=== PATIENT | female | born 1980 | race Caucasian/White ===

== ENCOUNTER 2016-09-23 12:43 | Emergency (ER) | payer MEDICAID ==
[~2016-09-23] VITALS: Ht 154.9 cm; Wt 59.0 kg
[~2016-09-23 12:43] MED LIST: ACET325T33 PO; OMEP20CA16 PO; RANI150T9 PO
[2016-09-23 12:53] VITALS: Ht 154.9 cm; Wt 59.0 kg
[2016-09-23] MEDS ORDERED: IBUPROFEN 600 MG TAB PO ONE (15:00)
--- NOTE | 2016-09-23 15:25 | RADRPT ---
PROCEDURE: XR Left Hand CLINICAL INDICATION: Pain, swelling TECHNIQUE: AP, oblique, and lateral radiographs were submitted. COMPARISON: None FINDINGS: Osseous structures: appear well mineralized and intact with no fracture or destructive process iden tified. Joint spaces: are well maintained, with no significant spurring, erosion or joint effusion evident. Soft tissues: appear unremarkable. IMPRESSION: Unremarkable left hand. Physician Anila Date Time Electronically viewed and signed by Physician Anila on 09/23/2016 15:25 /
--- NOTE | 2016-09-23 15:26 | RADRPT ---
PROCEDURE: XR Left Wrist with Navicular View CLINICAL INDICATION: Pain and swelling TECHNIQUE: AP, lateral, and oblique views as well as a carpal navicular view were submitted. COMPARISON: None FINDINGS: Osseous structures: appear well mineralized and intact with no fracture or destructive process iden tified. Joint spaces: are well maintained with no significant erosions or spurring identified. Soft tissues: appear unremarkable. IMPRESSION: Unremarkable left wrist with navicular view. Physician Anila Date Time Electronically viewed and signed by Physician Anila on 09/23/2016 15:26 RH/
[2016-09-23] MEDS ORDERED: IBUP-1542 PO (15:30)
[2016-09-23 15:51] VITALS: TEMP 98.1
--- NOTE | 2016-09-24 17:00 | ERD ---
ER Documentation Chief Complaint Date/Time DATE: 09/24/16 TIME: 16:55 Chief Complaint Pt c/o L wrist pain and swelling X 4 days. Denies fever . no injury. HPI This is a 36-year-old female presents emergency department for left wrist pain and swelling 4 days. No injury or trauma to the area. Patient denies numbness or tingling. Denies loss of sensation. No limited mobility. Patient has pain with hyperextension of left wrist. Patient has been taking Advil at home with last dose 7 hours ago. Patient is right-handed. No fevers. No rashes or skin changes. ROS All systems reviewed and are negative except as per history of present illness. Medications Home Meds Active Scripts Ibuprofen* (Motrin*) 600 Mg Tab, 600 MG PO Q6, #15 TAB Prov:JORJE PERRIN NP 09/23/16 Ranitidine Hcl* (Zantac*) 150 Mg Tablet, 150 MG PO BID Y for EPIGASTRIC PAIN, # 30 TAB Prov:JOHN HART NP 05/13/16 Omeprazole* (Omeprazole*) 20 Mg Capsule.dr, 20 MG PO DAILY for 14 Days, #14 Prov:JOHN HART NP 05/13/16 Acetaminophen* (Tylenol*) 325 Mg Tablet, 2 TAB PO Q6 Y for PAIN AND OR ELEVATED TEMP, #20 TAB Prov:NO DELA CRUZ 02/26/15 Allergies Allergies: Coded Allergies: No Known Allergy (Unverified , 09/23/16) PMhx/Soc Medical and Surgical Hx: pt denies Medical Hx, pt denies Surgical Hx History of Surgery: No Anesthesia Reaction: No Hx Neurological Disorder: No Hx Respiratory Disorders: No Hx Cardiac Disorders: No Hx Psychiatric Problems: No Hx Miscellaneous Medical Probl: No Hx Alcohol Use: No Hx Substance Use: No Hx Tobacco Use: No Smoking Status: Never smoker Physical Exam Vitals Vital Signs Date Time Temp Pulse Resp B/P Pulse Ox O2 Delivery O2 Flow Rate FiO2 09/23/16 15:51 98.1 09/23/16 12:53 97.9 69 18 129/80 99 Physical Exam Const: No acute distress, alert Head: Atraumatic Eyes: Normal Conjunctiva ENT: Normal External Ears, Nose and Mouth. Neck: Full range of motion..~ No meningismus. Resp: Clear to auscultation bilaterally Cardio: Regular rate and rhythm, no murmurs Abd: Soft, non tender, non distended. Normal bowel sounds Skin: No petechiae or rashes Back: No midline or flank tenderness Ext: No cyanosis, or edema. Full mobility to bilateral wrists. No loss of sensation. Neur: Awake and alert Psych: Normal Mood and Affect Results 24 hrs Current Medications Medications (Trade) Dose Ordered Sig/Ugo Route PRN Reason Start Time Stop Time Status Last Admin Dose Admin Ibuprofen (Motrin) 600 mg ONCE ONCE PO 09/23/16 15:00 09/23/16 15:01 DC 09/23/16 15:00 Procedures/MDM ED COURSE: The patient was stable throughout ED course. I kept the patient and/or family informed of laboratory and diagnostic imaging results throughout the ED course. Imaging Patient: RIDDHI BILL : 1980 Age: 36 Sex: F MR #: [id number] DOS: 09/23/16 1453 Ordering MD: JORJE PERRIN NP Location: [facility] Room/Bed: PROCEDURE: XR Left Hand CLINICAL INDICATION: Pain, swelling TECHNIQUE: AP, oblique, and lateral radiographs were submitted. COMPARISON: None FINDINGS: Osseous structures: appear well mineralized and intact with no fracture or destructive process identified. Joint spaces: are well maintained, with no significant spurring, erosion or joint effusion evident. Soft tissues: appear unremarkable. IMPRESSION: Unremarkable left hand. Patient: RIDDHI BILL : 1980 Age: 36 Sex: F MR #: [id number] DOS: 09/23/16 1453 Ordering MD: JORJE PERRIN NP Location: [facility] Room/Bed: PROCEDURE: XR Left Wrist with Navicular View CLINICAL INDICATION: Pain and swelling TECHNIQUE: AP, lateral, and oblique views as well as a carpal navicular view were submitted. COMPARISON: None FINDINGS: Osseous structures: appear well mineralized and intact with no fracture or destructive process identified. Joint spaces: are well maintained with no significant erosions or spurring identified. Soft tissues: appear unremarkable. IMPRESSION: Unremarkable left wrist with navicular view. MDM: 36 year old female presents emergency department for left wrist pain and swelling 4 days. Denies injury or trauma. Has full sensation to wrist and hand. No loss of sensation. Physical exam is overall unremarkable. No fevers or chills. No skin changes. X-ray left hand reviewed by radiologist as unremarkable. X-ray left wrist reviewed by radiologist is unremarkable. Remains hemodynamically stable. Low suspicion for acute dislocation, fracture, compartment syndrome or cellulitis. Diagnosis is wrist pain, musculoskeletal. Patient is appropriate for outpatient management will be given prescription for ibuprofen. Instructed patient to follow-up with primary care provider in the next 2-3 days for reassessment. Return to ED for any high fever, chest pain, difficulty breathing, shortness breath, wheezing, vomiting, diarrhea, abdominal pain or any new or worsening symptoms. Patient verbalizes understanding. All questions answered at discharge. Latvian translation use during this encounter. Departure Diagnosis: Primary Impression: Wrist pain Laterality: left Qualified Code: M25.532 - Left wrist pain Condition: Stable Patient Instructions: Wrist Sprain [facility] Usted se liang hecho un examen mdico de control que le indica que no est en andriy condicin que requiera tratamiento urgente en el Departamento de Emergencia. Un estudio ms profundo y el tratamiento de martínez condicin pueden esperar sin ningn riesgo hasta que usted sea atendida/o en el consultorio de martínez mdico o andriy cl lis. Es responsabilidad suya arreglar andriy nya para el seguimiento del eduardo. MANEJO DE CONDICIONES NO URGENTES EN EL FUTURO 1) Si usted tiene un mdico de atencin primaria: Usted debera llamar a martínez mdico de atencin primaria antes de venir al departamento de emergencia. Despus de las horas de consultorio, martínez doctor o martínez asociado/a est disponible por telfono. El mdico o enfermero de lele en el servicio telefnico puede asesorarle por bonnie medio para atender el problema, o eduardo contrario se puede programar andriy nya. 2) Si usted no tiene un mdico de atencin primaria: Llame al mdico o clnica de referencia que aparece abajo boone las horas de consultorio para hacer andriy nya para que le vean. CLINICAS: [facility] [phone] [facility] [phone] [facility] [phone] [place] [address] [phone] [place] [address] [phone] [facility] [phone] [address] [facility] () Abril se liang hecho un examen mdico de control que le indica que no est en andriy condicin que requiera tratamiento urgente en el Departamento de Emergencia. Un estudio ms profundo y el tratamiento de martínez condicin pueden esperar sin ningn riesgo hasta que ted sea atendida/o en el consultorio de martínez mdico o andriy cl lis. Es responsabilidad suya arreglar andriy nya para el seguimiento del eduardo. MANEJO DE CONDICIONES NO URGENTES EN EL FUTURO 1) Si usted tiene un mdico de atencin primaria: Abril debera llamar a martínez mdico de atencin primaria antes de venir al departamento de emergencia. Despus de las horas de consultorio, martínez doctor o martínez asociado/a est disponible por telfono. El mdico o enfermero de lele en el servicio telefnico puede asesorarle por bonnie medio para atender el problema, o eduardo contrario se puede programar andriy nya. 2) Si usted no tiene un mdico de atencin primaria: Llame al mdico o condado institucions de referencia que aparece abajo boone las horas de consultorio para hacer andriy nya para que le vean. SI USTED NO PUEDE PAGAR PARA NEHA UN MEDICO puede ir a: [facility] [address] [place] [address] [facility] [address] [place] [address] [facility] [address] [place] [address] [facility] [address] [place], [place] [id number] Additional Instructions: Return to ED for any high fever, chest pain, difficulty breathing, shortness breath, wheezing, vomiting, diarrhea, abdominal pain or any new or worsening symptoms. Llame al doctor MAANA y domingo andriy NYA PARA DENTRO DE 2-3 CRAWFORD.Dgale a la secretaria que nosotros le instruimos hacer esta nya.Avise o llame si martínez condicin se empeora antes de la nya. Regresa aqui si peor o no mejor. JORJE PERRIN NP Sep 24, 2016 17:00
== END 2016-09-23 15:52 | disposition home or self-care (01) ==
LOC: FTE 12:43
DX: M25.532 Pain in left wrist (principal)
CPT/HCPCS: 73110; 73130; Z7502; Z7610

== ENCOUNTER 2018-01-04 07:01 | Emergency (ER) | END 2018-01-04 10:18 | disposition home or self-care (01) ==